=== PATIENT | female | born 1940 | race Caucasian/White ===

== ENCOUNTER 2016-11-13 10:59 | Inpatient (IN) ==
[2016-11-13] MEDS ORDERED: DILTIAZEM 100 MG VIAL.ADD IV ONE (11:20)
[2016-11-13] MEDS ORDERED: DILTIAZEM 50 MG/10 ML VIAL IV STA (11:21)
[2016-11-13] MEDS ORDERED: MAGNESIUM SULF RIDER 2 GM in PREMIX 1 EACH IV STA (11:21)
[2016-11-13] MEDS ORDERED: DILTIAZEM 50 MG/10 ML VIAL IV ONE (11:21)
[2016-11-13] MEDS ORDERED: DILTIAZEM INJ 100 MG in SODIUM CHLORIDE 0.9% 100 ML IV SCH (11:30)
[2016-11-13 11:44] LABS: Basophils # 0.1 10*3/uL (0.0-0.2); Basophils % 0.9 % (0.0-0.8); Eosinophils # 0.2 10*3/uL (0.0-0.87); Eosinophils % 1.5 % (0.00-10.9); Hematocrit 43.3 VOL% (35.7-47.0); Hemoglobin 14.1 GM/DL (12.0-16.0); Immature Granulocytes % 0.4 %; Immature Granulocytes Absolute 0.04 #; Lymphocytes # 2.4 10*3/uL (1.4-4.0); Lymphocytes % 22.9 % (21.3-54.2); Mean Corpuscular HGB Conc 32.6 GM/DL (32-36); Mean Corpuscular Hemoglobin 29 PG (27-34); Mean Corpuscular Volume 90.4 FL (87-102); Mean Platelet Volume 9.1 FL (9.6-12.0); Monocytes # 0.7 10*3/uL (0.11-0.8); Monocytes % 6.6 % (1.7-12.7); Neutrophils # 7.1 10*3/uL (1.4-7.4); Neutrophils % 67.7 % (38.7-73.9); Platelet Count 377 T/CUMM (130-400); Red Blood Count 4.79 MC/CUMM (3.8-5.5); Red Cell Distribution Width 14.5 % (9.3-17.3); White Blood Count 10.5 T/CUMM (4-12)
--- NOTE | 2016-11-13 11:48 | Emergency Department Note ---
Robin Marino Emily, am scribing for, and in the presence of, Danyel Morton MD 11:25. Selene Marino James D, MD, personally performed the services described in this documentation, ascribed by Pina Kelly in my presence, and it is both accurate and complete . Arrival - Arrival Chief Complaint: Shortness of Breath Stated Complaint: brought from gi lab ED Nursing Triage Note: chest tightness and shortness of breath for many weeks was in GI lab for out patient c-scope when hooked up to heart monitor it showed SVT EKG sent with pt Mode of Arrival: Stretcher Limitations: No Limitations Source: Patient, Family (daughter), RN Notes Reviewed Time Seen by Provider: 11/13/16 11:17 - History of Present Illness HPI Narrative: Pt is a 76 y/o female who came to ED with c/o chest tightness and SOB, in waves , onset a year ago but happened while in GI lab this morning for out patient c- scope when hooked up to heart monitor. It showed SVT on EKG sent with pt. Pt states her heart "feels like its running away with chest" and has mild SOB with some dizziness. Pt has taken aspirin today and daily. Pt has told Dr. Henderson, her PCP, about these sxs with heart monitor and tests ran, with only one hospitalization for Afib. PMHx of HTN. Onset (ago): hour(s) Consistency: intermittent Severity: mild Severity scale (1-10): 3 Quality: other (racing) Allergies/Adverse Reactions: Allergies Allergy/AdvReac Type Severity Reaction Status Date / Time No Known Allergies Allergy Verified 09/01/14 15:36 Home Medications: Home Medications Medication Instructions Recorded Confirmed Type Metoprolol Succinate Xl [Toprol Xl] 50 mg PO DAILY #30 tablet 09/02/14 11/07/16 Rx Multivit,Calc,Mins/Iron/Folic 1 each PO DAILY 05/03/15 11/13/16 History [Women's Daily Formula Caplet] Tramadol HCl [Tramadol Tab] 50 mg PO Q6H PRN 05/03/15 11/13/16 History Aspirin EC Tab 325 mg PO DAILY 11/07/16 11/07/16 History Lisinopril [Zestril] 30 mg PO DAILY 11/07/16 11/07/16 History Review of System - Review of System 12 point system: reviewed and no additional remarkable complaints except as stated - Review of System Constitutional: Absent: diaphoresis, fever Respiratory: Present: respiratory distress (SOB) Cardiovascular: Present: chest pain, palpitations (racing). Absent: dyspnea on exertion, syncope Gastrointestinal: Absent: abdominal pain, nausea, vomiting Musculoskeletal: Absent: arm pain Skin: Absent: rash Medical,Surgical,& Family Hx - Medical History Cardio: History of: Hypertension Neurology: No history of: Seizures Gastrointestinal: History of: GI Problems (chronic abdominal pain) Musculoskeletal: No history of: Amputation - Surgical History Thoracic Surgeries: Patient denies;: Organ Transplant Neurologic Surgeries: Patient denies: Neurologic Surgery Abdominal Surgeries: Surgical HX of: Abdominal Surgery ("Mesh"), Cholecystectomy , Hernia Repair Reproductive Surgeries: Surgical HX of;: Hysterectomy Patient denies;: Gynecologic Surgery - Family History Family History: Reports;: Family Diabetes, Family Heart Disease, Family Hypertension Denies;: Family Anesthesia Reaction, Family Cancer, Family Psychiatric Problems, Family Stroke - Social History Smoking Status: Never smoker Functional capacity: independent ambulation Exam Vital Signs: Vital Signs Temperature 98.1 F 11/13/16 11:00 Pulse Rate 157 H 11/13/16 11:00 Respiratory Rate 21 11/13/16 11:00 Blood Pressure 117/98 11/13/16 11:00 O2 Sat by Pulse Oximetry 98 11/13/16 11:00 GENERAL: This is a well-nourished well-developed white female in no apparent distress. VITAL SIGNS: Reviewed HEENT: Head is atraumatic and normocephalic. Pupils are equal round react to light. Extraocular movements are intact. Oropharynx is benign with moist mucous membranes. NECK: Neck is soft and supple without tenderness. There are no masses. There is no lymphadenopathy. LUNGS: Lungs are clear to auscultation. Chest rises symmetrically. There is no chest wall tenderness. CV: Heart is rapid rate, regular rhythm without murmurs rubs or gallops. ABDOMEN: Abdomen is soft, nontender to palpation. There are no abdominal abnormal masses palpated. There is no organomegaly. Bowel sounds are present and active. SKIN: Skin is warm and dry. No rash. EXTREMITIES: Patient has full range of motion without tenderness. There is no pedal edema. NEUROLOGIC: Awake alert and oriented 4. Cranial nerves II through XII are grossly intact. Motor is 5 over 5 in all extremities bilaterally. Course - Consultations Consultation #1: discussed w/ Dr. Spence Time: 13:30 Results - Labs CBC & BMP: 11/13/16 11:41 11/13/16 10:48 Lab Results: I have reviewed the patients labs Labs: Laboratory Tests 11/13/16 11:41 WBC 10.5 RBC 4.79 Hgb 14.1 Hct 43.3 Plt Count 377 MPV 9.1 L Baso % (Auto) 0.9 H Laboratory Tests 11/13/16 11/13/16 10:48 11:41 INR 1.0 PT Patient/Control Mix 10.7 Circ Anticoag PTT 29.8 Magnesium 2.2 Free T4 0.92 Laboratory Tests 11/13/16 10:48 Sodium 139 Potassium 3.8 Chloride 108 H Carbon Dioxide 24 Creatinine 0.70 Glucose 120 H Troponin I < 0.015 Globulin 4.6 H Albumin/Globulin Ratio 0.7 L TSH 3rd Generation 1.790 - EKG EKG results: interpreted by ERMD - Impressions EKG: Sinus tachycardia with a rate of 157. Nonspecific ST-T wave changes, right axis deviation. Repeat EKG: Normal sinus rhythm with a rate of 88, normal ST-T waves, normal axis. - Diagnostic Findings Procedure: Chest x-ray: image reviewed by me, report reviewed by me (The heart is slightly larger in size with more prominent pulmonary vasculature. Minimal atelectasis/edema at the lung bases with underlying chronic scarring.) Disposition Clinical Impression: SVT (supraventricular tachycardia) Case discussed with: patient Disposition: Still a Patient Condition: Stable Time of Disposition: 13:26
[2016-11-13 11:49] LABS: PT Patient Result 10.7 SECS; Partial Thromboplastin Time 29.8 SECS (0-40)
[2016-11-13 11:57] LABS: Free T4 (Free Thyroxine) 0.92 NG/DL (0.76-1.46); Magnesium 2.2 MG/DL (1.8-2.4)
[2016-11-13 12:07] LABS: Alanine Aminotransferase 24 U/L (13-56); Albumin 3.5 G/DL (3.4-5.0); Alkaline Phosphatase 86 U/L (45-117); Aspartate Amino Transferase 17 U/L (0-37); Blood Urea Nitrogen 7 MG/DL (7-18); Calcium 9.1 MG/DL (8.5-10.1); Glucose 120 MG/DL (74-106); Osmolality,Calculated 275.5 MOS/KG (273-304); Potassium 3.8 MMOL/L (3.5-5.1); Sodium 139 MMOL/L (136-145); Total Protein 8.1 G/DL (6.4-8.3); Troponin I Only < 0.015 NG/ML (0.00-0.045)
--- NOTE | 2016-11-13 12:37 | XRay Report ---
Portable chest Date: 11/13/2016 Clinical history: Atrial fibrillation Comparison: 05/03/2015 Technique: Portable AP sitting chest Findings: The heart is minimally enlarged with calcification in the aortic knob. Minimal prominence of pulmonary vasculature with minimally progressive parenchymal findings at the lung bases. Stable mediastinum with degenerative changes. Postoperative findings the right neck location and GE junction. Impression: The heart is slightly larger in size with more prominent pulmonary vasculature. Minimal atelectasis/edema at the lung bases with underlying chronic scarring. PROCEDURE INTERPRETED AT [facility] DEPARTMENT OF RADIOLOGY Final Report Signed by: Dr. Eliza Corral
[2016-11-13] MEDS ORDERED: MAGNESIUM SULF RIDER 4 GM in PREMIX 1 EACH IV PRN (14:52)
[2016-11-13] MEDS ORDERED: MAGNESIUM SULF RIDER 2 GM in PREMIX 1 EACH IV PRN (14:52)
[2016-11-13] MEDS ORDERED: ZALEPLON 5 MG CAPSULE PO PRN (14:52)
[2016-11-13] MEDS ORDERED: DOCUSATE SODIUM 100 MG CAPSULE PO PRN (14:52)
[2016-11-13] MEDS ORDERED: ENOXAPARIN 40 MG/0.4 ML SYRINGE SUBCUT SCH (14:52)
[2016-11-13] MEDS ORDERED: ACETAMINOPHEN 325 MG TABLET PO PRN (14:52)
[2016-11-13] MEDS ORDERED: ONDANSETRON 4 MG/2 ML VIAL IV PRN (14:52)
--- NOTE | 2016-11-13 15:46 | Cardiology History & Physical ---
Addendum entered and electronically signed by Sonia Rosenberg NP 11/13/16 16:14 : Patient was seen and examined with Dr. Spence. Treatment options for SVT were reviewed with the patient, medical management versus ablation. Patient and granddaughter in room for discussion. Patient opted for medical management. Digoxin was initiated today. Continue beta-blockade. If patient does well with this medication, she could possibly be stable for discharge home tomorrow. Echocardiogram will be performed as an outpatient in the [facility]. Further plan and addendum to follow per Dr. Spence. Original Note: Assessment and Plan - Time spent with patient Time spent with patient: Greater than 30 minutes (1) SVT (supraventricular tachycardia) Status: Acute Assessment and plan: SEE PLAN OF CARE LISTED BELOW. Current Visit: Yes (2) Paroxysmal a-fib Status: Chronic Assessment and plan: SEE PLAN OF CARE LISTED BELOW. Current Visit: No (3) Chest pain Status: Chronic Assessment and plan: SEE PLAN OF CARE LISTED BELOW. Current Visit: Yes (4) Dyspnea on exertion Status: Chronic Assessment and plan: SEE PLAN OF CARE LISTED BELOW. Current Visit: Yes (5) Orthopnea Status: Chronic Assessment and plan: SEE PLAN OF CARE LISTED BELOW. Current Visit: Yes (6) Elevated glucose Status: Acute Assessment and plan: SEE PLAN OF CARE LISTED BELOW. Current Visit: Yes (7) History of DVT (deep vein thrombosis) Status: Chronic Assessment and plan: SEE PLAN OF CARE LISTED BELOW. Current Visit: No (8) Obesity Status: Chronic Assessment and plan: SEE PLAN OF CARE LISTED BELOW. Current Visit: No Qualifiers: Body mass index: BMI 36.0-36.9 (9) Hypertension Status: Chronic Assessment and plan: SEE PLAN OF CARE LISTED BELOW. Current Visit: No History of Present Illness Chief complaint: SVT History of present illness: Pole[employer] Supervisor: Dr. Bates in remote past Ms. Oliver is a 76 year old female without known history of coronary artery disease , who has been followed by Dr. Bates in the remote past. She has cardiac risk factors significant for advanced age, sedentary lifestyle, obesity, hypertension and family history of coronary artery disease (mother and father both from [place] mother was 80 and dad was 59). Patient is a lifetime non-smoker. Patient has past medical history of paroxysmal atrial fibrillation (not chronically anticoagulated). Patient underwent heart catheterization in 2008 which did not reveal any obstructive coronary artery disease. She had normal ejection fraction at that time. Patient was last seen in the cardiology clinic in 2014. Of note, she does have history of paroxysmal atrial fibrillation as well as DVT. She reports that she has been off Coumadin now for 6-7 years as she did not follow regularly for her PT/INR. Patient was scheduled for outpatient C scope in the GI Lab earlier this morning. She reports when she was hooked up to the monitor the nurse noticed that she was in SVT. Her heart rate was ranging in the 150s. She did confirm that she experienced heart fluttering/racing and chest tightness. She does confirm that she has been experiencing these symptoms for the last 1 year. This occurs intermittently and reportedly has occurred more frequently over the last 1 month. She reports that she has been experiencing them daily, lasts approximately 30 minutes to 1 hour. Usually resolves after taking 2 baby aspirins. She describes experiencing midsternal chest tightness and sharp pain. Nonradiating. Associated with shortness of breath. Denies diaphoresis, lightheadedness and nausea. She also confirms orthopnea for 2 years and has to sleep in recliner nightly. Also has admitted to dyspnea on exertion over the past 1 year. She becomes extremely short of breath with light exertion, having to take multiple rest breaks. She denies any symptoms related to obstructive sleep apnea. She admits that her family has been worried about her and has been trying to get her to see the doctor. However, she has not taken their advice. While in the GI Lab earlier this morning, heart alert was called. Subsequently, C scope was canceled and patient was transported to the emergency department to be further evaluated. She received IV Cardizem in the emergency department and has since converted back to normal sinus rhythm. Patient has been admitted under cardiology's service and housed on the telemetry unit. Patient was seen and examined on the telemetry unit. She is currently normal sinus rhythm with heart rates in the 70s. She is without compressive chest pain , heaviness and tightness. Most recent EKG reveals sinus rhythm, no evidence of myocardial infarction. Cardiac biomarkers negative 1. BNP stable at 61. Chest x-ray does reveal mild cardiomegaly with possible decompensated heart failure. I will order echocardiogram in order to assess patient's LV function. Thyroid studies normal. Labs been reviewed and are overall unremarkable. I have added lipid panel to a.m. labs. Patient is now converted back to normal sinus rhythm. I have initiated beta-blockade. Thyroid studies normal. We will monitor patient on recovery analyst. She may be candidate for EP study/ ablation. I will further discuss with Dr. chacon await additional recommendations. ASSESSMENT/PLAN: 1. SVT, NEW ONSET - Patient is now converted back to normal sinus rhythm. I have initiated beta-blockade. Thyroid studies normal. We will monitor patient on recovery analyst. She may be candidate for EP study/ablation. I will further discuss with Dr. chacon await additional recommendations. 2. CHEST PAIN - Suspect that this is related to her SVT. First set of cardiac biomarkers negative 1. EKG does not suggest cardiac injury/ischemia. We will continue to cycle cardiac biomarkers and EKGs. I will add lipid panel for in the morning. Will further discuss with Dr. chacon await additional recommendations. 3. HISTORY OF PAROXYSMAL ATRIAL FIBRILLATION - Patient has history of paroxysmal atrial fibrillation. No atrial fibrillation noted this hospitalization. Continue beta-blockade. Chads vas score of 4. Patient was anticoagulated with Coumadin in the past. However, she reports that this was discontinued per her PCP approximately 6-7 years ago as she was noncompliant with PT and INR checks. She has not been on any anticoagulation since that time. She may be a candidate for NOAC. I will discuss with Dr. chacon await his additional recommendations. 4. HISTORY OF HYPERTENSION - Stable at present. Will monitor blood pressure and adjust medications accordingly this hospitalization. 5. DYSPNEA ON EXERTION - Will order echocardiogram. Patient could have LV systolic dysfunction related to her untreated SVT. 6. ORTHOPNEA - BNP stable at 61. Will order echocardiogram. 7. HISTORY OF DVT - Clinically stable at present. Lovenox initiated for DVT prophylaxis. 8. ELEVATED GLUCOSE - Will order hemoglobin A1c. Patient has history of diabetes. 9. OBESITY - Weight loss encouraged via caloric restriction and regular exercise. Home Medications Medication Instructions Recorded Confirmed Type Metoprolol Succinate Xl [Toprol Xl] 50 mg PO DAILY #30 tablet 09/02/14 11/13/16 Rx Aspirin EC Tab 325 mg PO DAILY 11/07/16 11/13/16 History Lisinopril [Zestril] 30 mg PO DAILY 11/07/16 11/13/16 History Allergies Allergy/AdvReac Type Severity Reaction Status Date / Time No Known Allergies Allergy Verified 09/01/14 15:36 - Constitutional Constitutional: Present: as per HPI, fatigue, weakness, weight gain. Absent: chills, daytime sleepiness, fever(s), lethargy, malaise, stops breathing during sleep - Cardiovascular Cardiovascular: Present: as per HPI, chest pain at rest, dyspnea, dyspnea on exertion, orthopnea, palpitations, PND. Absent: claudication, diaphoresis, edema, radiating jaw, neck or arm pain, lightheadedness - Respiratory Respiratory: Present: as per HPI, dyspnea, dyspnea on exertion. Absent: cough, wheezing, snoring, pain on inspiration, change in phlegm color - Gastrointestinal Gastrointestinal: Present: as per HPI. Absent: abdominal pain, coffee ground emesis, heartburn, hematemesis, hematochezia, loose stools, melena, nausea, vomiting - Neurological Neurological: Present: as per HPI. Absent: abnormal gait, abnormal speech, behavioral changes, dizziness, syncope Medical,Surgical,& Family Hx - Medical History Cardio: History of: Hypertension - Surgical History Cardiac Surgeries: Sugical HX of: Cardiac Catheterization Neurologic Surgeries: Patient denies: Neurologic Surgery Abdominal Surgeries: Surgical HX of: Abdominal Surgery ("Mesh"), Cholecystectomy , Hernia Repair Reproductive Surgeries: Surgical HX of;: Hysterectomy Patient denies;: Gynecologic Surgery - Family History Family History: Reports;: Family Diabetes (mother), Family Heart Disease (father , mother), Family Hypertension (father, mother) Denies;: Family Psychiatric Problems, Family Stroke - Social History Smoking Status: Never smoker Frequency of Alcohol Use: None Type of Drug Use: None Functional capacity: independent ambulation Cardiology Physical Exam - Constitutional Vitals: Vital Signs Temp Pulse Resp BP Pulse Ox 98.1 F 77 16 117/68 90 L 11/13/16 11:00 11/13/16 14:52 11/13/16 14:52 11/13/16 14:52 11/13/16 14:52 Intake and Output 11/13/16 11/13/16 11/13/16 06:59 14:59 22:59 Other: Weight 234 lb 12.8 oz Patient Weight 11/14/16 06:59 Weight 234 lb 12.8 oz Exam: General: Appears well with no apparent distress. Pleasant and cooperative. Appears comfortable. HEENT: PERRL, normocephalic, atraumatic. Mucous membranes moist. No jaundice noted. Conjunctiva moist and clear, sclerae anicteric Neck: No JVD/HJR, no thyromegaly or lymphadenopathy noted. No carotid bruit appreciated Cardiac: Regular rate and rhythm. No murmur rub or gallop. Lungs: Decreased breath sounds. Not requiring oxygen. Abdomen: Soft, bowel sounds normoactive. Nontender and nondistended. No abdominal bruit or thrill noted. No masses noted. Extremities: No clubbing, cyanosis noted. No edema noted. Upper extremity pulses 2+. Lower extremity pulses 2+. Capillary refill less than 3 seconds. Skin: No unusual lesions or rashes. No skin breakdown appreciated. Neuro: Awake, alert and oriented 3. Moves all extremities well without hemiparesis or paralysis. No essential tremor is appreciated. Result/EKG - Labs CBC & BMP: 11/13/16 11:41 11/13/16 10:48 Lab Results: I have reviewed the past 24 hour labs Labs: Laboratory Results - last 24 hr 11/13/16 11/13/16 11/13/16 10:48 10:48 11:41 WBC RBC Hgb Hct MCV MCH MCHC RDW Plt Count MPV Neut % (Auto) Lymph % (Auto) [place] % (Auto) Eos % (Auto) Baso % (Auto) Neut # (Auto) Lymph # (Auto) [place] # (Auto) Eos # (Auto) Baso # (Auto) Immature Gran % Nucleated RBC % Immature Gran # Nucleated RBCs # Immature Plt Fraction INR 1.0 PT Patient/Control Mix 10.7 Circ Anticoag PTT 29.8 Sodium 139 Potassium 3.8 Chloride 108 H Carbon Dioxide 24 Anion Gap 10.8 BUN 7 Creatinine 0.70 GFR Calculation 102 BUN/Creatinine Ratio 10.00 Glucose 120 H Calculated Osmolality 275.5 Calcium 9.1 Magnesium 2.2 Total Bilirubin 1.00 AST 17 ALT 24 Alkaline Phosphatase 86 Troponin I < 0.015 B-Natriuretic Peptide Total Protein 8.1 Albumin 3.5 Globulin 4.6 H Albumin/Globulin Ratio 0.7 L Free T4 0.92 TSH 3rd Generation 1.790 11/13/16 11/13/16 11:41 11:41 WBC 10.5 RBC 4.79 Hgb 14.1 Hct 43.3 MCV 90.4 MCH 29 MCHC 32.6 RDW 14.5 Plt Count 377 MPV 9.1 L Neut % (Auto) 67.7 Lymph % (Auto) 22.9 [place] % (Auto) 6.6 Eos % (Auto) 1.5 Baso % (Auto) 0.9 H Neut # (Auto) 7.1 Lymph # (Auto) 2.4 [place] # (Auto) 0.7 Eos # (Auto) 0.2 Baso # (Auto) 0.1 Immature Gran % 0.4 Nucleated RBC % 0.0 Immature Gran # 0.04 Nucleated RBCs # 0.00 Immature Plt Fraction 0.0 INR PT Patient/Control Mix Circ Anticoag PTT Sodium Potassium Chloride Carbon Dioxide Anion Gap BUN Creatinine GFR Calculation BUN/Creatinine Ratio Glucose Calculated Osmolality Calcium Magnesium Total Bilirubin AST ALT Alkaline Phosphatase Troponin I B-Natriuretic Peptide 61 Total Protein Albumin Globulin Albumin/Globulin Ratio Free T4 TSH 3rd Generation
[2016-11-13 15:51] LABS: Troponin I Only 0.017 NG/ML (0.00-0.045)
[2016-11-13] MEDS ORDERED: DIGOXIN 0.125 MG TABLET PO ONE (16:13)
[2016-11-13 22:07] LABS: Apearance,Urine CLEAR (Clear); Bacteria,Urine Occasional /HPF (Few); Bilirubin,Urine Negative (Negative); Blood, Urine Small mg/dL (Negative); Glucose,Urine (UA) Negative (Negative); Ketones,Urine Negative (Negative); Nitrite,Urine Negative (Negative); Protein,Urine Negative; RBC,Urine <1 /HPF (0-4); Squamous Epithelial Cell,Urine Occasional /HPF (0-10); Urine Color Straw (Yellow); Urine Specific Gravity 1.004 (1.001-1.035); Urine Urobilinogen < 2.0 EU/DL (0.2-1.0); WBC,Urine <1 /HPF (0-6)
[2016-11-13 23:53] LABS: Troponin I Only < 0.015 NG/ML (0.00-0.045)
[2016-11-14 05:41] LABS: Basophils # 0.1 10*3/uL (0.0-0.2); Basophils % 1.2 % (0.0-0.8); Eosinophils # 0.3 10*3/uL (0.0-0.87); Eosinophils % 3.4 % (0.00-10.9); Hematocrit 39.1 VOL% (35.7-47.0); Hemoglobin 12.7 GM/DL (12.0-16.0); Immature Granulocytes % 0.4 %; Immature Granulocytes Absolute 0.03 #; Lymphocytes # 1.8 10*3/uL (1.4-4.0); Lymphocytes % 21.4 % (21.3-54.2); Mean Corpuscular HGB Conc 32.5 GM/DL (32-36); Mean Corpuscular Hemoglobin 30 PG (27-34); Mean Corpuscular Volume 91.1 FL (87-102); Mean Platelet Volume 8.9 FL (9.6-12.0); Monocytes # 0.6 10*3/uL (0.11-0.8); Monocytes % 6.7 % (1.7-12.7); Neutrophils # 5.5 10*3/uL (1.4-7.4); Neutrophils % 66.9 % (38.7-73.9); Platelet Count 312 T/CUMM (130-400); Red Blood Count 4.29 MC/CUMM (3.8-5.5); Red Cell Distribution Width 14.6 % (9.3-17.3); White Blood Count 8.2 T/CUMM (4-12)
[2016-11-14 06:12] LABS: Calcium 8.8 MG/DL (8.5-10.1); Magnesium 2.3 MG/DL (1.8-2.4); Osmolality,Calculated 278.4 MOS/KG (273-304)
[2016-11-14 06:16] LABS: Risk Ratio 3.91; VLDL CHOLESTEROL 36.4 MG/DL
[2016-11-14 06:26] LABS: Troponin I Only < 0.015 NG/ML (0.00-0.045)
--- NOTE | 2016-11-14 06:31 | EKG Report ---
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
--- NOTE | 2016-11-14 07:24 | EKG Report ---
Stationary ECG Study [facility] Test Date: 11/14/2016 7:25:18 AM Pat Name: SEGUNDO GALE Department: Room: 266 Gender: F Car [employer]: B[place] : 1940 Requested by: Sonia Rosenberg Order Number: [id number] Reading MD: SUSI WILLSON [address] [place] Rate: 69 P: 91 IN: 172 QRS: 62 QRSD: 97 T: 54 QT: 404 QTc: 423 Interpretive Statements SINUS RHYTHM Electronically Signed On 11-14-16 13:12:12 CDT by SUSI WILLSON [email or web address]
[2016-11-14] MEDS ORDERED: METOPROLOL SUCCINATE XL 50 MG TABLET PO SCH (09:00)
[2016-11-14] MEDS ORDERED: ASPIRIN EC 325 MG TABLET PO SCH (09:00)
[2016-11-14] MEDS ORDERED: PANTOPRAZOLE 40 MG TABLET PO SCH (09:00)
[2016-11-14] MEDS ORDERED: MULTIVITAMIN (CENTRUM) TABLET PO SCH (09:00)
[2016-11-14] MEDS ORDERED: DIGOXIN 0.125 MG TABLET PO SCH (09:00)
--- NOTE | 2016-11-14 10:43 | Discharge Summary ---
Diagnosis - Discharge Diagnosis (1) SVT (supraventricular tachycardia) Status: Acute (2) Paroxysmal a-fib Status: Chronic (3) Chest pain Status: Chronic (4) Dyspnea on exertion Status: Chronic (5) Orthopnea Status: Chronic (6) Elevated glucose Status: Acute (7) History of DVT (deep vein thrombosis) Status: Chronic (8) Obesity Status: Chronic (9) Hypertension Status: Chronic Discharge Plan - Discharge Medications No Action Metoprolol Succinate Xl [Toprol Xl] 50 mg PO DAILY #30 tablet Lisinopril [Zestril] 30 mg PO DAILY Aspirin EC Tab 325 mg PO DAILY - Follow Up or Referral - Forms/Instructions Exam - Constitutional Vitals: Period Temp Pulse Resp BP Sys/Bailey Pulse Ox Last 24 Hr 97.2 F-98.2 F 71-157 16-21 96-145/49-98 90-98 Discharge Results Procedures and tests throughout hospitalization: Pending Orders 11/13/16 21:55 Urine Culture Routine 11/15/16 04:00 BMP w/ Mg [Basic Metabolic Panel w/Mg] IN AM CBC [Comp Blood Count Auto Diff] IN AM 11/16/16 04:00 BMP w/ Mg [Basic Metabolic Panel w/Mg] IN AM CBC [Comp Blood Count Auto Diff] IN AM Labs on day of discharge: Labs from last 24 hours 11/14/16 11/14/16 11/14/16 05:10 05:10 05:10 WBC 8.2 RBC 4.29 Hgb 12.7 Hct 39.1 MCV 91.1 MCH 30 MCHC 32.5 RDW 14.6 Plt Count 312 MPV 8.9 L Neut % (Auto) 66.9 Lymph % (Auto) 21.4 [place] % (Auto) 6.7 Eos % (Auto) 3.4 Baso % (Auto) 1.2 H Neut # (Auto) 5.5 Lymph # (Auto) 1.8 [place] # (Auto) 0.6 Eos # (Auto) 0.3 Baso # (Auto) 0.1 Immature Gran % 0.4 Nucleated RBC % 0.0 Immature Gran # 0.03 Nucleated RBCs # 0.00 Immature Plt Fraction 0.0 INR PT Patient/Control Mix Circ Anticoag PTT Sodium 140 Potassium 4.0 Chloride 105 Carbon Dioxide 24 Anion Gap 15.0 BUN 13 Creatinine 0.60 GFR Calculation 111 BUN/Creatinine Ratio 21.00 H Glucose 106 Hemoglobin A1c Calculated Osmolality 278.4 Calcium 8.8 Magnesium 2.3 Total Bilirubin AST ALT Alkaline Phosphatase Total Creatine Kinase 52 CK-MB (CK-2) < 1.0 Troponin I < 0.015 B-Natriuretic Peptide Total Protein Albumin Globulin Albumin/Globulin Ratio Triglycerides Cholesterol LDL Cholesterol VLDL Cholesterol HDL Cholesterol Heart Disease Risk Ratio Free T4 TSH 3rd Generation Urine Color Urine Appearance Urine pH Ur Specific [place] Urine Protein Urine Glucose (UA) Urine Ketones Urine Blood Urine Nitrate Urine Bilirubin Urine Urobilinogen Urine Leukocytes Urine RBC Urine WBC Ur Squamous Epith Cells Urine Bacteria Ur Culture Indicated? 11/14/16 11/13/16 11/13/16 05:10 22:53 21:55 WBC RBC Hgb Hct MCV MCH MCHC RDW Plt Count MPV Neut % (Auto) Lymph % (Auto) [place] % (Auto) Eos % (Auto) Baso % (Auto) Neut # (Auto) Lymph # (Auto) [place] # (Auto) Eos # (Auto) Baso # (Auto) Immature Gran % Nucleated RBC % Immature Gran # Nucleated RBCs # Immature Plt Fraction INR PT Patient/Control Mix Circ Anticoag PTT Sodium Potassium Chloride Carbon Dioxide Anion Gap BUN Creatinine GFR Calculation BUN/Creatinine Ratio Glucose Hemoglobin A1c Calculated Osmolality Calcium Magnesium Total Bilirubin AST ALT Alkaline Phosphatase Total Creatine Kinase 49 CK-MB (CK-2) < 1.0 Troponin I < 0.015 B-Natriuretic Peptide Total Protein Albumin Globulin Albumin/Globulin Ratio Triglycerides 182 H Cholesterol 176 LDL Cholesterol 102.0 VLDL Cholesterol 36.4 HDL Cholesterol 45 Heart Disease Risk Ratio 3.91 Free T4 TSH 3rd Generation Urine Color Straw Urine Appearance Clear Urine pH 6.0 Ur Specific [place] 1.004 Urine Protein Negative Urine Glucose (UA) Negative Urine Ketones Negative Urine Blood Small Urine Nitrate Negative Urine Bilirubin Negative Urine Urobilinogen < 2.0 H Urine Leukocytes Negative Urine RBC <1 Urine WBC <1 Ur Squamous Epith Cells Occasional Urine Bacteria Occasional Ur Culture Indicated? Not indicated 11/13/16 11/13/16 11/13/16 15:20 11:41 11:41 WBC RBC Hgb Hct MCV MCH MCHC RDW Plt Count MPV Neut % (Auto) Lymph % (Auto) [place] % (Auto) Eos % (Auto) Baso % (Auto) Neut # (Auto) Lymph # (Auto) [place] # (Auto) Eos # (Auto) Baso # (Auto) Immature Gran % Nucleated RBC % Immature Gran # Nucleated RBCs # Immature Plt Fraction INR PT Patient/Control Mix Circ Anticoag PTT Sodium Potassium Chloride Carbon Dioxide Anion Gap BUN Creatinine GFR Calculation BUN/Creatinine Ratio Glucose Hemoglobin A1c 6.3 Calculated Osmolality Calcium Magnesium Total Bilirubin AST ALT Alkaline Phosphatase Total Creatine Kinase 48 CK-MB (CK-2) < 1.0 Troponin I 0.017 B-Natriuretic Peptide 61 Total Protein Albumin Globulin Albumin/Globulin Ratio Triglycerides Cholesterol LDL Cholesterol VLDL Cholesterol HDL Cholesterol Heart Disease Risk Ratio Free T4 TSH 3rd Generation Urine Color Urine Appearance Urine pH Ur Specific [place] Urine Protein Urine Glucose (UA) Urine Ketones Urine Blood Urine Nitrate Urine Bilirubin Urine Urobilinogen Urine Leukocytes Urine RBC Urine WBC Ur Squamous Epith Cells Urine Bacteria Ur Culture Indicated? 11/13/16 11/13/16 11/13/16 11:41 11:41 10:48 WBC 10.5 RBC 4.79 Hgb 14.1 Hct 43.3 MCV 90.4 MCH 29 MCHC 32.6 RDW 14.5 Plt Count 377 MPV 9.1 L Neut % (Auto) 67.7 Lymph % (Auto) 22.9 [place] % (Auto) 6.6 Eos % (Auto) 1.5 Baso % (Auto) 0.9 H Neut # (Auto) 7.1 Lymph # (Auto) 2.4 [place] # (Auto) 0.7 Eos # (Auto) 0.2 Baso # (Auto) 0.1 Immature Gran % 0.4 Nucleated RBC % 0.0 Immature Gran # 0.04 Nucleated RBCs # 0.00 Immature Plt Fraction 0.0 INR 1.0 PT Patient/Control Mix 10.7 Circ Anticoag PTT 29.8 Sodium 139 Potassium 3.8 Chloride 108 H Carbon Dioxide 24 Anion Gap 10.8 BUN 7 Creatinine 0.70 GFR Calculation 102 BUN/Creatinine Ratio 10.00 Glucose 120 H Hemoglobin A1c Calculated Osmolality 275.5 Calcium 9.1 Magnesium Total Bilirubin 1.00 AST 17 ALT 24 Alkaline Phosphatase 86 Total Creatine Kinase CK-MB (CK-2) Troponin I < 0.015 B-Natriuretic Peptide Total Protein 8.1 Albumin 3.5 Globulin 4.6 H Albumin/Globulin Ratio 0.7 L Triglycerides Cholesterol LDL Cholesterol VLDL Cholesterol HDL Cholesterol Heart Disease Risk Ratio Free T4 TSH 3rd Generation 1.790 Urine Color Urine Appearance Urine pH Ur Specific [place] Urine Protein Urine Glucose (UA) Urine Ketones Urine Blood Urine Nitrate Urine Bilirubin Urine Urobilinogen Urine Leukocytes Urine RBC Urine WBC Ur Squamous Epith Cells Urine Bacteria Ur Culture Indicated? 11/13/16 10:48 WBC RBC Hgb Hct MCV MCH MCHC RDW Plt Count MPV Neut % (Auto) Lymph % (Auto) [place] % (Auto) Eos % (Auto) Baso % (Auto) Neut # (Auto) Lymph # (Auto) [place] # (Auto) Eos # (Auto) Baso # (Auto) Immature Gran % Nucleated RBC % Immature Gran # Nucleated RBCs # Immature Plt Fraction INR PT Patient/Control Mix Circ Anticoag PTT Sodium Potassium Chloride Carbon Dioxide Anion Gap BUN Creatinine GFR Calculation BUN/Creatinine Ratio Glucose Hemoglobin A1c Calculated Osmolality Calcium Magnesium 2.2 Total Bilirubin AST ALT Alkaline Phosphatase Total Creatine Kinase CK-MB (CK-2) Troponin I B-Natriuretic Peptide Total Protein Albumin Globulin Albumin/Globulin Ratio Triglycerides Cholesterol LDL Cholesterol VLDL Cholesterol HDL Cholesterol Heart Disease Risk Ratio Free T4 0.92 TSH 3rd Generation Urine Color Urine Appearance Urine pH Ur Specific [place] Urine Protein Urine Glucose (UA) Urine Ketones Urine Blood Urine Nitrate Urine Bilirubin Urine Urobilinogen Urine Leukocytes Urine RBC Urine WBC Ur Squamous Epith Cells Urine Bacteria Ur Culture Indicated? Preliminary micro results at discharge 11/13/16 21:55 Urine Culture - Preliminary Urine,Voided No Growth at 12 hours. DS: Provider Date of admission: 11/13/16 13:31 Primary care physician: Erin Henderson MD Attending physician on admission: Rjei Spence MD Discharging clinician: Sonia Rosenberg NP Expected date of discharge: 11/14/16
--- NOTE | 2016-11-14 11:25 | Cardiology Progress Note ---
Assessment and Plan (1) SVT (supraventricular tachycardia) Status: Acute Assessment and plan: SEE PLAN OF CARE LISTED BELOW. Current Visit: Yes (2) Paroxysmal a-fib Status: Chronic Assessment and plan: SEE PLAN OF CARE LISTED BELOW. Current Visit: No (3) Chest pain Status: Chronic Assessment and plan: SEE PLAN OF CARE LISTED BELOW. Current Visit: Yes (4) Dyspnea on exertion Status: Chronic Assessment and plan: SEE PLAN OF CARE LISTED BELOW. Current Visit: Yes (5) Orthopnea Status: Chronic Assessment and plan: SEE PLAN OF CARE LISTED BELOW. Current Visit: Yes (6) Elevated glucose Status: Acute Assessment and plan: SEE PLAN OF CARE LISTED BELOW. Current Visit: Yes (7) History of DVT (deep vein thrombosis) Status: Chronic Assessment and plan: SEE PLAN OF CARE LISTED BELOW. Current Visit: No (8) Obesity Status: Chronic Assessment and plan: SEE PLAN OF CARE LISTED BELOW. Current Visit: No Qualifiers: Body mass index: BMI 36.0-36.9 (9) Hypertension Status: Chronic Assessment and plan: SEE PLAN OF CARE LISTED BELOW. Current Visit: No Exam (Progress Note) - Constitutional Vitals: Period Temp Pulse Resp BP Sys/Bailey Pulse Ox Last 24 Hr 97.2 F-98.2 F 71-96 16-20 96-145/49-86 90-98 Result/EKG - Labs CBC & BMP: 11/14/16 05:10 11/14/16 05:10 Labs: Laboratory Results - last 24 hr 11/13/16 11/13/16 11/13/16 10:48 10:48 11:41 WBC RBC Hgb Hct MCV MCH MCHC RDW Plt Count MPV Neut % (Auto) Lymph % (Auto) [place] % (Auto) Eos % (Auto) Baso % (Auto) Neut # (Auto) Lymph # (Auto) [place] # (Auto) Eos # (Auto) Baso # (Auto) Immature Gran % Nucleated RBC % Immature Gran # Nucleated RBCs # Immature Plt Fraction INR 1.0 PT Patient/Control Mix 10.7 Circ Anticoag PTT 29.8 Sodium 139 Potassium 3.8 Chloride 108 H Carbon Dioxide 24 Anion Gap 10.8 BUN 7 Creatinine 0.70 GFR Calculation 102 BUN/Creatinine Ratio 10.00 Glucose 120 H Hemoglobin A1c Calculated Osmolality 275.5 Calcium 9.1 Magnesium 2.2 Total Bilirubin 1.00 AST 17 ALT 24 Alkaline Phosphatase 86 Total Creatine Kinase CK-MB (CK-2) Troponin I < 0.015 B-Natriuretic Peptide Total Protein 8.1 Albumin 3.5 Globulin 4.6 H Albumin/Globulin Ratio 0.7 L Triglycerides Cholesterol LDL Cholesterol VLDL Cholesterol HDL Cholesterol Heart Disease Risk Ratio Free T4 0.92 TSH 3rd Generation 1.790 Urine Color Urine Appearance Urine pH Ur Specific [place] Urine Protein Urine Glucose (UA) Urine Ketones Urine Blood Urine Nitrate Urine Bilirubin Urine Urobilinogen Urine Leukocytes Urine RBC Urine WBC Ur Squamous Epith Cells Urine Bacteria Ur Culture Indicated? 11/13/16 11/13/16 11/13/16 11:41 11:41 11:41 WBC 10.5 RBC 4.79 Hgb 14.1 Hct 43.3 MCV 90.4 MCH 29 MCHC 32.6 RDW 14.5 Plt Count 377 MPV 9.1 L Neut % (Auto) 67.7 Lymph % (Auto) 22.9 [place] % (Auto) 6.6 Eos % (Auto) 1.5 Baso % (Auto) 0.9 H Neut # (Auto) 7.1 Lymph # (Auto) 2.4 [place] # (Auto) 0.7 Eos # (Auto) 0.2 Baso # (Auto) 0.1 Immature Gran % 0.4 Nucleated RBC % 0.0 Immature Gran # 0.04 Nucleated RBCs # 0.00 Immature Plt Fraction 0.0 INR PT Patient/Control Mix Circ Anticoag PTT Sodium Potassium Chloride Carbon Dioxide Anion Gap BUN Creatinine GFR Calculation BUN/Creatinine Ratio Glucose Hemoglobin A1c 6.3 Calculated Osmolality Calcium Magnesium Total Bilirubin AST ALT Alkaline Phosphatase Total Creatine Kinase CK-MB (CK-2) Troponin I B-Natriuretic Peptide 61 Total Protein Albumin Globulin Albumin/Globulin Ratio Triglycerides Cholesterol LDL Cholesterol VLDL Cholesterol HDL Cholesterol Heart Disease Risk Ratio Free T4 TSH 3rd Generation Urine Color Urine Appearance Urine pH Ur Specific [place] Urine Protein Urine Glucose (UA) Urine Ketones Urine Blood Urine Nitrate Urine Bilirubin Urine Urobilinogen Urine Leukocytes Urine RBC Urine WBC Ur Squamous Epith Cells Urine Bacteria Ur Culture Indicated? 11/13/16 11/13/16 11/13/16 15:20 21:55 22:53 WBC RBC Hgb Hct MCV MCH MCHC RDW Plt Count MPV Neut % (Auto) Lymph % (Auto) [place] % (Auto) Eos % (Auto) Baso % (Auto) Neut # (Auto) Lymph # (Auto) [place] # (Auto) Eos # (Auto) Baso # (Auto) Immature Gran % Nucleated RBC % Immature Gran # Nucleated RBCs # Immature Plt Fraction INR PT Patient/Control Mix Circ Anticoag PTT Sodium Potassium Chloride Carbon Dioxide Anion Gap BUN Creatinine GFR Calculation BUN/Creatinine Ratio Glucose Hemoglobin A1c Calculated Osmolality Calcium Magnesium Total Bilirubin AST ALT Alkaline Phosphatase Total Creatine Kinase 48 49 CK-MB (CK-2) < 1.0 < 1.0 Troponin I 0.017 < 0.015 B-Natriuretic Peptide Total Protein Albumin Globulin Albumin/Globulin Ratio Triglycerides Cholesterol LDL Cholesterol VLDL Cholesterol HDL Cholesterol Heart Disease Risk Ratio Free T4 TSH 3rd Generation Urine Color Straw Urine Appearance Clear Urine pH 6.0 Ur Specific [place] 1.004 Urine Protein Negative Urine Glucose (UA) Negative Urine Ketones Negative Urine Blood Small Urine Nitrate Negative Urine Bilirubin Negative Urine Urobilinogen < 2.0 H Urine Leukocytes Negative Urine RBC <1 Urine WBC <1 Ur Squamous Epith Cells Occasional Urine Bacteria Occasional Ur Culture Indicated? Not indicated 11/14/16 11/14/16 11/14/16 05:10 05:10 05:10 WBC 8.2 RBC 4.29 Hgb 12.7 Hct 39.1 MCV 91.1 MCH 30 MCHC 32.5 RDW 14.6 Plt Count 312 MPV 8.9 L Neut % (Auto) 66.9 Lymph % (Auto) 21.4 [place] % (Auto) 6.7 Eos % (Auto) 3.4 Baso % (Auto) 1.2 H Neut # (Auto) 5.5 Lymph # (Auto) 1.8 [place] # (Auto) 0.6 Eos # (Auto) 0.3 Baso # (Auto) 0.1 Immature Gran % 0.4 Nucleated RBC % 0.0 Immature Gran # 0.03 Nucleated RBCs # 0.00 Immature Plt Fraction 0.0 INR PT Patient/Control Mix Circ Anticoag PTT Sodium Potassium Chloride Carbon Dioxide Anion Gap BUN Creatinine GFR Calculation BUN/Creatinine Ratio Glucose Hemoglobin A1c Calculated Osmolality Calcium Magnesium Total Bilirubin AST ALT Alkaline Phosphatase Total Creatine Kinase 52 CK-MB (CK-2) < 1.0 Troponin I < 0.015 B-Natriuretic Peptide Total Protein Albumin Globulin Albumin/Globulin Ratio Triglycerides 182 H Cholesterol 176 LDL Cholesterol 102.0 VLDL Cholesterol 36.4 HDL Cholesterol 45 Heart Disease Risk Ratio 3.91 Free T4 TSH 3rd Generation Urine Color Urine Appearance Urine pH Ur Specific [place] Urine Protein Urine Glucose (UA) Urine Ketones Urine Blood Urine Nitrate Urine Bilirubin Urine Urobilinogen Urine Leukocytes Urine RBC Urine WBC Ur Squamous Epith Cells Urine Bacteria Ur Culture Indicated? 11/14/16 05:10 WBC RBC Hgb Hct MCV MCH MCHC RDW Plt Count MPV Neut % (Auto) Lymph % (Auto) [place] % (Auto) Eos % (Auto) Baso % (Auto) Neut # (Auto) Lymph # (Auto) [place] # (Auto) Eos # (Auto) Baso # (Auto) Immature Gran % Nucleated RBC % Immature Gran # Nucleated RBCs # Immature Plt Fraction INR PT Patient/Control Mix Circ Anticoag PTT Sodium 140 Potassium 4.0 Chloride 105 Carbon Dioxide 24 Anion Gap 15.0 BUN 13 Creatinine 0.60 GFR Calculation 111 BUN/Creatinine Ratio 21.00 H Glucose 106 Hemoglobin A1c Calculated Osmolality 278.4 Calcium 8.8 Magnesium 2.3 Total Bilirubin AST ALT Alkaline Phosphatase Total Creatine Kinase CK-MB (CK-2) Troponin I B-Natriuretic Peptide Total Protein Albumin Globulin Albumin/Globulin Ratio Triglycerides Cholesterol LDL Cholesterol VLDL Cholesterol HDL Cholesterol Heart Disease Risk Ratio Free T4 TSH 3rd Generation Urine Color Urine Appearance Urine pH Ur Specific [place] Urine Protein Urine Glucose (UA) Urine Ketones Urine Blood Urine Nitrate Urine Bilirubin Urine Urobilinogen Urine Leukocytes Urine RBC Urine WBC Ur Squamous Epith Cells Urine Bacteria Ur Culture Indicated?
--- NOTE | 2016-11-14 11:29 | Discharge Summary ---
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 Oliver is a 76 year old female without known history of coronary artery disease , who has been followed by Dr. Bates in the remote past. She has cardiac risk factors significant for advanced age, sedentary lifestyle, obesity, hypertension and family history of coronary artery disease (mother and father both from [place] mother was 80 and dad was 59). Patient is a lifetime non-smoker. Patient has past medical history of paroxysmal atrial fibrillation (not chronically anticoagulated). Patient underwent heart catheterization in 2008 which did not reveal any obstructive coronary artery disease. She had normal ejection fraction at that time. Patient was last seen in the cardiology clinic in 2014. Of note, she does have history of paroxysmal atrial fibrillation as well as DVT. She reports that she has been off Coumadin now for 6-7 years as she did not follow regularly for her PT/INR. Patient was scheduled for outpatient C scope in the GI Lab. When hooked up to the media monitor, she was noted to be an SVT with heart rates in the 150s. Subsequently, patient's C scope was canceled and patient was sent to the emergency department. Patient quickly converted on her own. She did not have any recurrent episodes of SVT this hospitalization. Several treatment options were discussed with the patient including both medical management versus ablation. Patient opted to first try medical management. Beta-blockade was continued. Digoxin was added to her medical regimen. She has done well with digoxin. No further episodes of SVT. If medical management fails, can consider ablation with Dr. Gross in the future. She also had complaints of chest pressure this hospitalization. She ruled out for AR. Patient was offered cardiac catheterization per Dr. Reji Spence. However, she formally declined this offer. She reports that she may consider this at a later date. Patient will be discharged home on aspirin, PPI and sublingual nitroglycerin to be used as needed. Lipid panel was obtained which revealed LDL 176 and triglycerides of 182. Patient will be discharged home with statin. Lipid panel will need to be rechecked in approximately 1 month to 6 weeks. Hemoglobin A1c was checked and noted to be 6.3. I will schedule patient appointment with her PCP for regular follow-up as she is prediabetic. Chronic orthopnea also noted. BNP stable at 60 this hospitalization. After discussing with Dr. Spence, we will order echocardiogram as an outpatient in order to formally assess her LV systolic function. Blood pressure has been well controlled this hospitalization. Patient is anxious for discharge home today. Having felt that she has met maximal medical therapy, she will be discharged home in stable condition. Of note, patient does have history of paroxysmal atrial fibrillation. Currently not on anticoagulation. Chads vasc score 4. NOAC was offered this hospitalization. Patient was agreeable to begin Eliquis for stroke prevention. 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 She has been given a follow-up appointment with Dr. Bates in 2 weeks with EKG, CBC and echocardiogram. She has also been given a follow-up appointment with her PCP in 1 week with BMP. Patient verbalizes understanding of discharge instructions and discharge medications. Diagnosis - Discharge Diagnosis (1) SVT (supraventricular tachycardia) Status: Chronic (2) Paroxysmal a-fib Status: Chronic (3) Chest pain Status: Resolved (4) Dyspnea on exertion Status: Chronic (5) Orthopnea Status: Chronic (6) Elevated glucose Status: Acute (7) History of DVT (deep vein thrombosis) Status: Chronic (8) Obesity Status: Chronic (9) Hypertension Status: Chronic Specialty Discharge - Follow Up or Referrals Follow up with: Mitchell Bates MD [Physician] - 2 Weeks (With EKG, echocardiogram and CBC) Discharge Plan - Discharge Data Disposition: Disch To Home/Self Care Condition at Discharge: Stable Discharge Diet: diabetic diet, heart healthy, low fat, low cholesterol, low salt diet Activity: resume usual activities as tolerated Hygiene: no restrictions Weight Bearing at Discharge: weight bear as tolerated Driving: no restrictions Contact your physician if you experience:: fever over 101, Difficulty voiding, Redness or swelling, Nausea/Vomiting, Shortness of breath, Bleeding, pain uncontrolled by pain medications - Discharge Medications New Aspirin EC Tab 81 mg PO DAILY #30 tablet Atorvastatin [Lipitor] 40 mg PO BEDTIME #30 tablet Digoxin Tab [Lanoxin Tab] 0.125 mg PO DAILY@0900 #30 tablet Pantoprazole Tab [Protonix Tab] 40 mg PO DAILY #30 tablet Apixaban [Eliquis] 5 mg PO BID #60 tablet Nitroglycerin [Nitroglycerin SL Tab] 0.4 mg SL Q5M PRN #1 bottle PRN Reason: Chest Pain Continue Metoprolol Succinate Xl [Toprol Xl] 50 mg PO DAILY #30 tablet Discontinued Lisinopril [Zestril] 30 mg PO DAILY Aspirin EC Tab 325 mg PO DAILY - Follow Up or Referral Follow Up: Mitchell Bates MD [Physician] - 2 Weeks (With EKG, echocardiogram and CBC) - Forms/Instructions Additional Discharge Instructions: Follow-up with PCP in 1 week with SPENCER. Exam - Constitutional Vitals: Period Temp Pulse Resp BP Sys/Bailey Pulse Ox Last 24 Hr 97.2 F-98.2 F 71-96 16-20 96-145/49-86 90-98 Exam: General: Appears well with no apparent distress. Pleasant and cooperative. Appears comfortable. HEENT: PERRL, normocephalic, atraumatic. Mucous membranes moist. No jaundice noted. Conjunctiva moist and clear, sclerae anicteric Neck: No JVD/HJR, no thyromegaly or lymphadenopathy noted. No carotid bruit appreciated Cardiac: Regular rate and rhythm. No murmur rub or gallop. Lungs: Clear to auscultation without accessory muscle use to assist the respiratory pattern. Not requiring oxygen. Abdomen: Soft, bowel sounds normoactive. Nontender and nondistended. No abdominal bruit or thrill noted. No masses noted. Extremities: No clubbing, cyanosis noted. No edema noted. Upper extremity pulses 2+. Lower extremity pulses 2+. Capillary refill less than 3 seconds. Skin: No unusual lesions or rashes. No skin breakdown appreciated. Neuro: Awake, alert and oriented 3. Moves all extremities well without hemiparesis or paralysis. No essential tremor is appreciated. Discharge Results Procedures and tests throughout hospitalization: Pending Orders 11/13/16 21:55 Urine Culture Routine 11/15/16 04:00 BMP w/ Mg [Basic Metabolic Panel w/Mg] IN AM CBC [Comp Blood Count Auto Diff] IN AM 11/16/16 04:00 BMP w/ Mg [Basic Metabolic Panel w/Mg] IN AM CBC [Comp Blood Count Auto Diff] IN AM Labs on day of discharge: Labs from last 24 hours 11/14/16 11/14/16 11/14/16 05:10 05:10 05:10 WBC 8.2 RBC 4.29 Hgb 12.7 Hct 39.1 MCV 91.1 MCH 30 MCHC 32.5 RDW 14.6 Plt Count 312 MPV 8.9 L Neut % (Auto) 66.9 Lymph % (Auto) 21.4 [place] % (Auto) 6.7 Eos % (Auto) 3.4 Baso % (Auto) 1.2 H Neut # (Auto) 5.5 Lymph # (Auto) 1.8 [place] # (Auto) 0.6 Eos # (Auto) 0.3 Baso # (Auto) 0.1 Immature Gran % 0.4 Nucleated RBC % 0.0 Immature Gran # 0.03 Nucleated RBCs # 0.00 Immature Plt Fraction 0.0 INR PT Patient/Control Mix Circ Anticoag PTT Sodium 140 Potassium 4.0 Chloride 105 Carbon Dioxide 24 Anion Gap 15.0 BUN 13 Creatinine 0.60 GFR Calculation 111 BUN/Creatinine Ratio 21.00 H Glucose 106 Hemoglobin A1c Calculated Osmolality 278.4 Calcium 8.8 Magnesium 2.3 Total Bilirubin AST ALT Alkaline Phosphatase Total Creatine Kinase 52 CK-MB (CK-2) < 1.0 Troponin I < 0.015 B-Natriuretic Peptide Total Protein Albumin Globulin Albumin/Globulin Ratio Triglycerides Cholesterol LDL Cholesterol VLDL Cholesterol HDL Cholesterol Heart Disease Risk Ratio Free T4 TSH 3rd Generation Urine Color Urine Appearance Urine pH Ur Specific [place] Urine Protein Urine Glucose (UA) Urine Ketones Urine Blood Urine Nitrate Urine Bilirubin Urine Urobilinogen Urine Leukocytes Urine RBC Urine WBC Ur Squamous Epith Cells Urine Bacteria Ur Culture Indicated? 11/14/16 11/13/16 11/13/16 05:10 22:53 21:55 WBC RBC Hgb Hct MCV MCH MCHC RDW Plt Count MPV Neut % (Auto) Lymph % (Auto) [place] % (Auto) Eos % (Auto) Baso % (Auto) Neut # (Auto) Lymph # (Auto) [place] # (Auto) Eos # (Auto) Baso # (Auto) Immature Gran % Nucleated RBC % Immature Gran # Nucleated RBCs # Immature Plt Fraction INR PT Patient/Control Mix Circ Anticoag PTT Sodium Potassium Chloride Carbon Dioxide Anion Gap BUN Creatinine GFR Calculation BUN/Creatinine Ratio Glucose Hemoglobin A1c Calculated Osmolality Calcium Magnesium Total Bilirubin AST ALT Alkaline Phosphatase Total Creatine Kinase 49 CK-MB (CK-2) < 1.0 Troponin I < 0.015 B-Natriuretic Peptide Total Protein Albumin Globulin Albumin/Globulin Ratio Triglycerides 182 H Cholesterol 176 LDL Cholesterol 102.0 VLDL Cholesterol 36.4 HDL Cholesterol 45 Heart Disease Risk Ratio 3.91 Free T4 TSH 3rd Generation Urine Color Straw Urine Appearance Clear Urine pH 6.0 Ur Specific [place] 1.004 Urine Protein Negative Urine Glucose (UA) Negative Urine Ketones Negative Urine Blood Small Urine Nitrate Negative Urine Bilirubin Negative Urine Urobilinogen < 2.0 H Urine Leukocytes Negative Urine RBC <1 Urine WBC <1 Ur Squamous Epith Cells Occasional Urine Bacteria Occasional Ur Culture Indicated? Not indicated 11/13/16 11/13/16 11/13/16 15:20 11:41 11:41 WBC RBC Hgb Hct MCV MCH MCHC RDW Plt Count MPV Neut % (Auto) Lymph % (Auto) [place] % (Auto) Eos % (Auto) Baso % (Auto) Neut # (Auto) Lymph # (Auto) [place] # (Auto) Eos # (Auto) Baso # (Auto) Immature Gran % Nucleated RBC % Immature Gran # Nucleated RBCs # Immature Plt Fraction INR PT Patient/Control Mix Circ Anticoag PTT Sodium Potassium Chloride Carbon Dioxide Anion Gap BUN Creatinine GFR Calculation BUN/Creatinine Ratio Glucose Hemoglobin A1c 6.3 Calculated Osmolality Calcium Magnesium Total Bilirubin AST ALT Alkaline Phosphatase Total Creatine Kinase 48 CK-MB (CK-2) < 1.0 Troponin I 0.017 B-Natriuretic Peptide 61 Total Protein Albumin Globulin Albumin/Globulin Ratio Triglycerides Cholesterol LDL Cholesterol VLDL Cholesterol HDL Cholesterol Heart Disease Risk Ratio Free T4 TSH 3rd Generation Urine Color Urine Appearance Urine pH Ur Specific [place] Urine Protein Urine Glucose (UA) Urine Ketones Urine Blood Urine Nitrate Urine Bilirubin Urine Urobilinogen Urine Leukocytes Urine RBC Urine WBC Ur Squamous Epith Cells Urine Bacteria Ur Culture Indicated? 11/13/16 11/13/16 11/13/16 11:41 11:41 10:48 WBC 10.5 RBC 4.79 Hgb 14.1 Hct 43.3 MCV 90.4 MCH 29 MCHC 32.6 RDW 14.5 Plt Count 377 MPV 9.1 L Neut % (Auto) 67.7 Lymph % (Auto) 22.9 [place] % (Auto) 6.6 Eos % (Auto) 1.5 Baso % (Auto) 0.9 H Neut # (Auto) 7.1 Lymph # (Auto) 2.4 [place] # (Auto) 0.7 Eos # (Auto) 0.2 Baso # (Auto) 0.1 Immature Gran % 0.4 Nucleated RBC % 0.0 Immature Gran # 0.04 Nucleated RBCs # 0.00 Immature Plt Fraction 0.0 INR 1.0 PT Patient/Control Mix 10.7 Circ Anticoag PTT 29.8 Sodium 139 Potassium 3.8 Chloride 108 H Carbon Dioxide 24 Anion Gap 10.8 BUN 7 Creatinine 0.70 GFR Calculation 102 BUN/Creatinine Ratio 10.00 Glucose 120 H Hemoglobin A1c Calculated Osmolality 275.5 Calcium 9.1 Magnesium Total Bilirubin 1.00 AST 17 ALT 24 Alkaline Phosphatase 86 Total Creatine Kinase CK-MB (CK-2) Troponin I < 0.015 B-Natriuretic Peptide Total Protein 8.1 Albumin 3.5 Globulin 4.6 H Albumin/Globulin Ratio 0.7 L Triglycerides Cholesterol LDL Cholesterol VLDL Cholesterol HDL Cholesterol Heart Disease Risk Ratio Free T4 TSH 3rd Generation 1.790 Urine Color Urine Appearance Urine pH Ur Specific [place] Urine Protein Urine Glucose (UA) Urine Ketones Urine Blood Urine Nitrate Urine Bilirubin Urine Urobilinogen Urine Leukocytes Urine RBC Urine WBC Ur Squamous Epith Cells Urine Bacteria Ur Culture Indicated? 11/13/16 10:48 WBC RBC Hgb Hct MCV MCH MCHC RDW Plt Count MPV Neut % (Auto) Lymph % (Auto) [place] % (Auto) Eos % (Auto) Baso % (Auto) Neut # (Auto) Lymph # (Auto) [place] # (Auto) Eos # (Auto) Baso # (Auto) Immature Gran % Nucleated RBC % Immature Gran # Nucleated RBCs # Immature Plt Fraction INR PT Patient/Control Mix Circ Anticoag PTT Sodium Potassium Chloride Carbon Dioxide Anion Gap BUN Creatinine GFR Calculation BUN/Creatinine Ratio Glucose Hemoglobin A1c Calculated Osmolality Calcium Magnesium 2.2 Total Bilirubin AST ALT Alkaline Phosphatase Total Creatine Kinase CK-MB (CK-2) Troponin I B-Natriuretic Peptide Total Protein Albumin Globulin Albumin/Globulin Ratio Triglycerides Cholesterol LDL Cholesterol VLDL Cholesterol HDL Cholesterol Heart Disease Risk Ratio Free T4 0.92 TSH 3rd Generation Urine Color Urine Appearance Urine pH Ur Specific [place] Urine Protein Urine Glucose (UA) Urine Ketones Urine Blood Urine Nitrate Urine Bilirubin Urine Urobilinogen Urine Leukocytes Urine RBC Urine WBC Ur Squamous Epith Cells Urine Bacteria Ur Culture Indicated? Preliminary micro results at discharge 11/13/16 21:55 Urine Culture - Preliminary Urine,Voided No Growth at 12 hours. DS: Provider Date of admission: 11/13/16 13:31 Primary care physician: Erin Henderson MD Attending physician on admission: Reji Spence MD Discharging clinician: Sonia Rosenberg NP Expected date of discharge: 11/14/16
[2016-11-14 12:07] VITALS: BP 127/68
[2016-11-14] MEDS ORDERED: ATORVASTATIN 40 MG TABLET PO SCH (21:00)
[2016-11-14] MEDS ORDERED: APIXABAN 5 MG TABLET PO SCH (21:00)
[2016-11-15] MEDS ORDERED: ASPIRIN EC 81 MG TABLET PO SCH (09:00)
== END 2016-11-14 13:47 | disposition home or self-care (01) | DRG 310 ==
LOC: N.ED 10:59 → N.EDINP 13:31 → N.TELES 14:52
PROVIDERS: ADMIT Internal Medicine Cardiovascular Disease; ATTEND Internal Medicine Cardiovascular Disease